=== PATIENT | female | born 1985 | race Hispanic/Latino ===

== ENCOUNTER 2019-10-03 11:34 | Emergency (ER) | payer SELFPAY ==
[~2019-10-03] VITALS: Ht 147.3 cm; Wt 68.0 kg
[~2019-10-03 11:34] MED LIST: AMPICILLIN500 MG PO; ERYTHROMYCIN E400 MG PO; FERROUS SUL2 PO; FERROUS SULF325 M2 PO; OMEPRAZOLE20 MG PO; PREVACID30 M2 PO
[2019-10-03] MEDS ORDERED: AMOXICILLIN875 MG PO (12:20)
[2019-10-03 14:03] LABS: HEMATOCRIT 40.6 % (37.0-47.0); HEMOGLOBIN 13.6 g/dl (12.0-16.0); IMMATURE GRANULOCYTES 0.4 % (0.0-5.0); MEAN CORPUSCULAR HGB 29.2 pG CALC (26.0-32.0); MEAN CORPUSCULAR HGB CONC 33.5 g/dL CAL (32.0-36.0); NEUT# 2.9 thou/uL (2.00-7.15); RED BLOOD COUNT 4.65 mill/uL (4.20-5.60); RED CELL DISTRI WIDTH 13.3 % (11.5-15.5)
[2019-10-03 14:05] LABS: MEAN CELL VOLUME 87.3 fL CALC (80.0-100.0)
[2019-10-03 14:15] LABS: ALBUMIN 4.2 g/dL (3.2-5.0); ANION GAP 14 (6-22 (CALC)); BUN 10 mg/dL (7-17); BUN/CREATININE RATIO 19 (12-20 (CALC)); CARBON DIOXIDE 23 mmol/l (22-30); CHLORIDE 106 mmol/l (95-108); CREATININE 0.5 mg/dL (0.5-1.0); GFR > 60 ML/MIN (>=60 (CALC)); GFR FOR AFR.AMER. > 60 ML/MIN (>=60 (CALC)); POTASSIUM 3.8 mmol/l (3.5-5.1); SODIUM 139 mmol/l (137-146); TOTAL PROTEIN 8.3 g/dL (6.3-8.2)
[2019-10-03 14:29] LABS: ALKALINE PHOSPHATASE 77 u/l (38-126); BILIRUBIN, TOTAL 0.4 mg/dL (0.0-1.4); SGOT/AST 42 u/l (14-36)
[2019-10-03 14:35] LABS: URINE BLOOD DIPSTICK LARGE (NEGATIVE); URINE COLOR YELLOW; URINE GLUCOSE - DIPSTICK NEGATIVE (NEGATIVE); URINE KETONE NEGATIVE (NEGATIVE); URINE LEUK ESTERASE NEGATIVE (NEGATIVE); URINE NITRITE - DIPSTICK NEGATIVE (Negative); URINE PH 5.5 (4.5-8.0); URINE PROTEIN - DIPSTICK 100 mg/dL (NEG-TRACE); URINE SPECIFIC GRAVITY >=1.030
[2019-10-03 14:41] LABS: URINE BILIRUBIN - DIPSTICK NEGATIVE (NEGATIVE)
[2019-10-03 14:45] LABS: URINE RBC TNTC RBC/hpf (0-5); URINE SQUAMOUS EPITHELIAL CELL FEW EPI/hpf (0-FEW)
[2019-10-03 15:17] VITALS: BP 123/82
[2019-10-03] MEDS ORDERED: ZOFRAN4 MG/TAB PO (15:27)
== END 2019-10-03 15:40 | disposition home or self-care (01) | DRG 392 ==
LOC: ED 11:34
DX: R11.2 Nausea with vomiting, unspecified (principal)

== ENCOUNTER 2022-06-06 08:44 | Emergency (ER) | payer SELFPAY ==
[~2022-06-06] VITALS: Ht 147.3 cm; Wt 71.8 kg
[~2022-06-06 08:44] MED LIST changes: +AMOXICILLIN875 MG PO; +ZOFRAN4 MG/TAB PO
[2022-06-06 11:53] VITALS: BP 119/64
[2022-06-06 12:00] VITALS: BP 116/68
[2022-06-06 12:15] VITALS: BP 122/76
[2022-06-06 12:30] VITALS: BP 159/92
[2022-06-06] MEDS ORDERED: MEDDOSEPAK PO (12:33)
[2022-06-06] MEDS ORDERED: CIPRODEX1 ML OT (12:33)
[2022-06-06 12:59] VITALS: BP 159/92
== END 2022-06-06 13:09 | disposition home or self-care (01) | DRG 156 ==
LOC: ED 08:44
DX: H60.92 Unspecified otitis externa, left ear (principal)